=== PATIENT | male | born 1970 | race Two or more races ===

== ENCOUNTER 2025-03-22 20:08 | Emergency (ER) | payer SELFPAY ==
[2025-03-22 20:19] VITALS: BMI 24.3
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
[2025-03-22 20:26] VITALS: BP 134/92; PULSE 90; RESP 18; TEMP 36.8; O2SAT 96
== END 2025-03-22 20:31 ==
LOC: SERX 21:00
PROVIDERS: Emergency Provider Emergency Medicine
DX: Z02.89 Encounter for other administrative examinations (principal); Z04.1 Encounter for examination and observation following transport accident
CPT/HCPCS: 99283